=== PATIENT | male | born 1975 | race African-American/Black ===

== ENCOUNTER 2018-10-30 03:15 | Emergency (ER) | payer BC ==
[2018-10-30] MEDS ORDERED: CYCLOBENZAPRINE HCL 10 MG TABLET (FP) PO ONE (03:28)
[2018-10-30] MEDS ORDERED: ACETAMINOPHEN 500 MG TABLET (FP) PO ONE (03:28)
[2018-10-30] MEDS ORDERED: ACETAMINOPHEN 500 MG TABLET (FP) ONE (03:30)
[2018-10-30] MEDS ORDERED: CYCLOBENZAPRINE HCL 10 MG TABLET (FP) ONE (03:30)
--- NOTE | 2018-10-30 03:32 | PDOC ---
History of Present Illness - General Chief Complaint: Pain, Acute Stated Complaint: PAIN TO RIB CAGE AREA Time Seen by Provider: 10/30/18 03:25 History Source: Patient Exam Limitations: No Limitations - History of Present Illness Initial Comments: 10/30/18 03:29 This is a 42-year-old male who comes in complaining of right sided back pain mid back area. Patient denies any trauma to the area with a febrile illness that drawn. Otherwise patient said pain is worse when he moves. Patient took some Advil for the pain without relief. Patient said he can't take NSAIDs because of appropriate reasons did not realize that there was some NSAID. He otherwise denies any other complaints. Patient denies any chest pain cough, congestion nausea vomiting. Allergies: as per nursing notes Past Medical History: none Social history: Lives with family. No smoking. No alcohol. No illicit drugs. Surgical history: None General: No fevers or chills, no weakness, no weight loss HEENT: No change in vision. No sore throat,. No ear pain CardioVascular: no chest discomfort. No shortness of breath Respiratory:No cough, or wheezing. Gastrointestinal: no nausea, vomiting, diarrhea or constipation, No rectal bleeding Genitourinary: No dysuria, hematuria, or frequency Musculoskeletal: No joint or muscle pain or swelling, back pain as per history of present illness Neurologic: No headache, vertigo, dizziness or loss of consciousness Psychiatric: nor depression Skin: No rashes or easy bruising Endocrine: no increased thirst or abnormal weight change Allergic: no skin or latex allergy All other systems reviewed and normal GENERAL: The patient is awake, alert, and fully oriented, in no acute distress. HEAD: Normal with no signs of trauma. EYES: Pupils equal, round and reactive to light, extraocular movements intact, sclera anicteric, conjunctiva clear. Back: There is no CVA tenderness. There is a palpable muscular spasm in the area of his pain. Lungs are clear. There is no spinal tenderness. EXTREMITIES:atraumatic, Normal range of motion, no edema. NEUROLOGICAL: Normal speech, normal gait. PSYCH: Normal mood, normal affect. SKIN: Warm, Dry, normal turgor, no rashes or lesions noted. Assessment and plan: This is a 42-year-old male who comes in complaining of back pain and spasm. Patient given Flexeril and Tylenol and Naila to take NSAIDs. Patient given today off from work and discharged home. Past History - Past Medical History Allergies/Adverse Reactions: Allergies Allergy/AdvReac Type Severity Reaction Status Date / Time No Known Allergies Allergy Verified 10/30/18 03:21 Home Medications: Ambulatory Orders Cyclobenzaprine HCl [Flexeril 10 mg] 10 mg PO BID PRN #20 tablet 10/30/18 Triamterene/Hydrochlorothiazid [Triamterene-Hctz 37.5-25 mg Cp] 1 each PO DAILY 10/30/18 Anemia: No Asthma: No Cancer: No Cardiac Disorders: No HTN: Yes - Surgical History Abdominal Surgery: No Appendectomy: No Cardiac Surgery: No Cholecystectomy: No - Suicide/Smoking/Psychosocial Hx Smoking Status: Yes Smoking History: Former smoker Number of Cigarettes Smoked Daily: 5 Hx Alcohol Use: No Substance Use Type: None *DC/Admit/Observation/Transfer Diagnosis at time of Disposition: Back muscle spasm - Discharge Dispostion Disposition: HOME Condition at time of disposition: Stable Decision to Admit order: No - Referrals Referrals: Andrew Gao MD [Primary Care Provider] - - Patient Instructions Additional Instructions: Take Tylenol 2 extra strength tablets every 4-6 hours as needed for the pain. Take Flexeril one tablet before bed. U can take it during the day however it will make you drowsy and will not be able to work or drive or do anything that requires her concentration if he take it during the day take one in the morning. Return to the emergency department immediately with ANY new, persistent or worsening symptoms. Continue any medications as previously prescribed by your physician. You should follow up with your primary doctor as soon as possible regarding today's emergency department visit. . Please make sure your doctor reviews the results of your emergency evaluation. Thank you for coming to the Emergency Department today for your care. It was a pleasure to see you today. Please note that your evaluation is INCOMPLETE until you follow-up with your doctor. - Post Discharge Activity
[2018-10-30 03:33] VITALS: BP 159/103; PULSE 70; TEMP 97.3; BMI 40.4
== END 2018-10-30 03:39 | disposition home or self-care (01) ==
LOC: FER 03:15
DX: M62.830 Muscle spasm of back (principal); Z87.891 Personal history of nicotine dependence; I10 Essential (primary) hypertension
CPT/HCPCS: 99281-25

== ENCOUNTER 2020-03-26 14:47 | Emergency (ER) | payer BC, OTHER ==
[2020-03-26 15:44] VITALS: BP 167/106; PULSE 66; TEMP 98.3; BMI 36.9
== END 2020-03-26 17:45 | disposition home or self-care (01) ==
LOC: FER 14:47
DX: K11.21 Acute sialoadenitis (principal)
CPT/HCPCS: 70487-TC; 70491-TC; 99285-25; Q9967

== ENCOUNTER 2021-03-11 06:35 | Emergency (ER) | payer OTHER ==
[2021-03-11 06:42] VITALS: BP 181/105; PULSE 103; TEMP 98.3; BMI 36.2
[2021-03-11] MEDS ORDERED: ACETAMINOPHEN 500 MG TABLET (FP) PO ONE (07:00)
[2021-03-11] MEDS ORDERED: CEPHALEXIN MONOHYDRATE 500 MG CAPSULE (UD) PO ONE (07:01)
[2021-03-11] MEDS ORDERED: CEPHALEXIN MONOHYDRATE 500 MG CAPSULE (UD) ONE (07:04)
[2021-03-11] MEDS ORDERED: ACETAMINOPHEN 500 MG TABLET (FP) ONE (07:04)
== END 2021-03-11 07:13 | disposition home or self-care (01) ==
LOC: FER 06:35
DX: S93.602A Unspecified sprain of left foot, initial encounter (principal)
CPT/HCPCS: 73630-TC-LT; 99284-25

== ENCOUNTER 2021-12-27 18:23 | Emergency (ER) | payer OTHER ==
[2021-12-27 18:51] VITALS: TEMP 99.9; BMI 34.2
[2021-12-27 19:56] LABS: HEMATOCRIT 33.5 % (35.4-49); HEMOGLOBIN 11.6 G/dL (11.7-16.9); MCH 30.8 pg (25.7-33.7); MCHC 34.6 g/dl (32.0-35.9); MEAN CELL VOLUME 89.2 fl (80-96); MEAN PLT VOLUME 8.8 fl (7.5-11.1); PLATELET COUNT 238.3 10^3/uL (134-434); RBC 3.76 10^6/uL (4.00-5.60); RDW 14.2 % (11.9-15.9); WHITE BLOOD COUNT 13.9 10^3/uL (4.0-10.8)
[2021-12-27] MEDS ORDERED: ALPRAZolam 1 MG TABLET PO PRN (20:44)
[2021-12-27] MEDS ORDERED: morphine CARPU-JECT 2 MG/1 ML DISP.SYRIN IVPUSH ONE ×2 (20:44→21:45)
[2021-12-27] MEDS ORDERED: morphine SULFATE 4 MG/ML VIAL ONE (20:45)
[2021-12-27] MEDS ORDERED: ALPRAZolam 0.25 MG TABLET ONE (20:48)
[2021-12-27 21:05] LABS: PLATELET ESTIMATE ADEQUATE
[2021-12-27 21:34] LABS: INR 1.15 (0.83-1.09); PROTHROMBIN TIME (PATIENT) 13.3 SEC (9.7-13.0)
[2021-12-27 21:41] LABS: CALCIUM 9.5 mg/dL (8.5-10.1)
[2021-12-27 21:42] LABS: ALBUMIN 3.8 g/dl (3.4-5.0)
[2021-12-27 21:46] LABS: BILIRUBIN,TOTAL 0.8 mg/dL (0.2-1); TOT PROT 7.4 g/dl (6.4-8.2)
[2021-12-27 23:22] VITALS: RESP 20
[2021-12-28 01:00] VITALS: BP 102/69
[2021-12-28 01:30] VITALS: PULSE 76
== END 2021-12-28 01:30 | disposition short-term general hospital (02) ==
LOC: FER 18:23
PROC: 3E033NZ Introduction of Analgesics, Hypnotics, Sedatives into Peripheral Vein, Percutaneous Approach (ICD-10-PCS; principal; 2021-12-27)
DX: I31.3 Pericardial effusion (noninflammatory) (principal); R07.9 Chest pain, unspecified
CPT/HCPCS: 0241U-QW; 36415; 71046-TC-FY; 71275-TC; 80053; 82550; 83605; 84484; 85025; 85610; 86850; 86900; 86901; 93005; 96374; 99285-25; Q9967